=== PATIENT | female | born 2000 | race African-American/Black ===

== ENCOUNTER 2021-08-12 21:09 | Emergency (ER) | payer MEDICAID ==
[~2021-08-12] VITALS: Ht 167.6 cm; Wt 69.0 kg
[2021-08-12] MEDS ORDERED: MAGNESIUM/ALUMINUM HYDROXIDE/SIMETHICONE 30ML UDC PO STA (22:11)
[2021-08-12] MEDS ORDERED: VISCOUS LIDOCAINE 2% 15 ML UDC PO STA (22:11)
[2021-08-12] MEDS ORDERED: SODIUM CHLORIDE 0.9% 1,000 ML IV ONE (22:15)
[2021-08-12 22:37] LABS: HEMATOCRIT. 37.1 % (36.0-48.0); HEMOGLOBIN. 12.4 g/dL (12.0-16.0); MEAN CORPUSCULAR HEMOGLOBIN 26.8 pg (28.0-32.0); MEAN CORPUSCULAR VOLUME 80.2 fL (81.0-99.0); MEAN PLATELET VOLUME 9.5 fl (7.4-10.4); PLATELET 292 x1000/uL (130-400); RED BLOOD CELL COUNT 4.63 mill/uL (4.2-5.4); RED CELL DISTRIBUTION WIDTH 15.9 % (11.6-14.6)
[2021-08-12 22:47] LABS: HCG SCREEN NEGATIVE
[2021-08-12 22:58] LABS: CHLORIDE 105 mEq/L (98-107)
[2021-08-12] MEDS ORDERED: ONDANSETRON HCL 4MG/2ML INJ IV ONE (23:00)
[2021-08-12 23:06] LABS: PLATELET ESTIMATE NORMAL
[2021-08-13 00:40] VITALS: BP 128/78
== END 2021-08-13 00:40 | disposition home or self-care (01) ==
LOC: ER 21:09
DX: R10.13 Epigastric pain (principal); R11.2 Nausea with vomiting, unspecified; R03.0 Elevated blood-pressure reading, without diagnosis of hypertension
CPT/HCPCS: 36415; 80053; 81025; 83690; 84703; 85025; 96361; 96374; 99283; J2405; J7030

== ENCOUNTER 2022-01-23 20:31 | Emergency (ER) | payer MEDICAID ==
[~2022-01-23] VITALS: Ht 167.6 cm; Wt 75.0 kg
[2022-01-23 21:10] VITALS: BP 130/52
[2022-01-23] MEDS ORDERED: ONDANSETRON 4MG ODT PO ONE (21:30)
[2022-01-24] MEDS ORDERED: FAMOTIDINE 20MG TABLET PO SCH (21:00)
== END 2022-01-23 23:56 | disposition home or self-care (01) ==
LOC: ER 20:31
DX: R11.2 Nausea with vomiting, unspecified (principal); Z87.891 Personal history of nicotine dependence
CPT/HCPCS: 99283; Q0162

== ENCOUNTER 2022-07-22 23:59 | Emergency (ER) | payer MEDICAID ==
[~2022-07-22] VITALS: Ht 170.2 cm; Wt 92.2 kg
[2022-07-23 00:24] VITALS: BP 106/38
[2022-07-23 02:57] LABS: CLARITY URINE CLEAR (CLEAR); COLOR URINE YELLOW (YELLOW); KETONES URINE 2+ (NEGATIVE); LEUKOCYTE ESTERASE URINE NEGATIVE (NEGATIVE); NITRITE URINE NEGATIVE (NEGATIVE); OCCULT BLOOD URINE NEGATIVE (NEGATIVE); PH URINE 5.5 (4.5-8.0); PROTEIN URINE 1+ (NEGATIVE); SPECIFIC GRAVITY URINE 1.035 (1.005-1.030); UROBILINOGEN URINE 0.2 E.U./dL (0.2-1.0)
[2022-07-23 03:30] LABS: BASOPHILS % 0.3 % (0.0-2.0); HEMATOCRIT. 38.9 % (36.0-48.0); HEMOGLOBIN. 12.8 g/dL (12.0-16.0); LYMPHOCYTES % 9.5 % (20.0-50.0); MEAN CORPUSCULAR HEMOGLOBIN 26.6 pg (28.0-32.0); MEAN CORPUSCULAR VOLUME 80.9 fL (81.0-99.0); MEAN PLATELET VOLUME 9.3 fl (7.4-10.4); MONOCYTES % 5.2 % (2.0-8.0); PLATELET 307 x1000/uL (130-400); RED BLOOD CELL COUNT 4.81 mill/uL (4.2-5.4); RED CELL DISTRIBUTION WIDTH 17.2 % (11.6-14.6)
[2022-07-23 03:37] LABS: CHLORIDE 104 mEq/L (98-107)
[2022-07-23] MEDS ORDERED: ONDA4TAB50 MT (05:57)
[2022-07-23] MEDS ORDERED: ONDANSETRON 4MG ODT PO NR (06:00)
== END 2022-07-23 06:15 | disposition home or self-care (01) ==
LOC: ER 23:59
DX: R11.2 Nausea with vomiting, unspecified (principal); Z00.00 Encounter for general adult medical examination without abnormal findings; F12.10 Cannabis abuse, uncomplicated
CPT/HCPCS: 36415; 80053; 81003; 81025; 83690; 85025; 99283; Q0162

== ENCOUNTER 2022-10-16 21:03 | Emergency (ER) | payer MEDICAID ==
[~2022-10-16] VITALS: Ht 170.2 cm; Wt 91.0 kg
[~2022-10-16 21:03] MED LIST: ONDA4TAB50 MT
[2022-10-16 21:23] VITALS: BP 126/89
[2022-10-16] MEDS ORDERED: AMOXICILLIN/POTASSIUM CLAVULANATE 875/125MG TAB PO ONE (22:30)
[2022-10-16] MEDS ORDERED: TETANUS, DIPHTHERIA, PERTUSSIS VAC/PF 0.5ML (>10YR OLD) IM ONE (22:30)
[2022-10-16] MEDS ORDERED: AMOX1TAB16 MT (22:35)
[2022-10-16] MEDS ORDERED: IBUPROFEN 600MG TABLET PO ONE (22:45)
== END 2022-10-16 22:45 | disposition home or self-care (01) ==
LOC: ER 21:03
DX: S61.431A Puncture wound without foreign body of right hand, initial encounter (principal); S60.417A Abrasion of left little finger, initial encounter; W54.0XXA Bitten by dog, initial encounter; Y93.89 Activity, other specified; Y92.018 Other place in single-family (private) house as the place of occurrence of the external cause
CPT/HCPCS: 90471; 90715; 99283

== ENCOUNTER 2022-11-03 20:44 | Emergency (ER) | payer MEDICAID ==
[~2022-11-03] VITALS: Ht 170.2 cm; Wt 99.0 kg
[~2022-11-03 20:44] MED LIST changes: +AMOX1TAB16 MT
[2022-11-03 21:12] VITALS: BP 130/77
[2022-11-03] MEDS ORDERED: METOCLOPRAMIDE HCL 10MG/2ML VIAL IV STA (22:32)
[2022-11-03] MEDS ORDERED: SODIUM CHLORIDE 0.9% 1,000 ML IV ONE (22:45)
[2022-11-03 22:54] LABS: CLARITY URINE CLEAR (CLEAR); COLOR URINE YELLOW (YELLOW); KETONES URINE 3+ (NEGATIVE); LEUKOCYTE ESTERASE URINE 1+ (NEGATIVE); NITRITE URINE NEGATIVE (NEGATIVE); OCCULT BLOOD URINE NEGATIVE (NEGATIVE); PROTEIN URINE TRACE (NEGATIVE); SPECIFIC GRAVITY URINE 1.027 (1.005-1.030); UROBILINOGEN URINE 0.2 E.U./dL (0.2-1.0)
[2022-11-03 23:30] LABS: HEMATOCRIT. 37.8 % (36.0-48.0); HEMOGLOBIN. 12.2 g/dL (12.0-16.0); MEAN CORPUSCULAR HEMOGLOBIN 27.7 pg (28.0-32.0); MEAN CORPUSCULAR VOLUME 85.7 fL (81.0-99.0); MEAN PLATELET VOLUME 9.4 fl (7.4-10.4); PLATELET 321 x1000/uL (130-400); RED BLOOD CELL COUNT 4.41 mill/uL (4.2-5.4); RED CELL DISTRIBUTION WIDTH 15.9 % (11.6-14.6)
[2022-11-03 23:33] LABS: CHLORIDE 105 mEq/L (98-107)
[2022-11-03 23:34] LABS: PROTHROMBIN TIME 10.9 sec (9.6-11.0)
[2022-11-03 23:59] LABS: PLATELET ESTIMATE NORMAL
[2022-11-04] MEDS ORDERED: CEPH500C2 MT (01:05)
== END 2022-11-04 01:39 | disposition home or self-care (01) ==
LOC: ER 20:44
DX: K29.70 Gastritis, unspecified, without bleeding (principal); N39.0 Urinary tract infection, site not specified; F10.10 Alcohol abuse, uncomplicated; Y90.9 Presence of alcohol in blood, level not specified
CPT/HCPCS: 36415; 80053; 81003; 81025; 83690; 85025; 85610; 96361; 96374; 99283; J2765; J7030

== ENCOUNTER 2023-10-20 23:12 | Emergency (ER) | payer MEDICAID ==
[~2023-10-20] VITALS: Ht 172.7 cm; Wt 91.0 kg
[~2023-10-20 23:12] MED LIST changes: +CEPH500C2 MT
[2023-10-20 23:31] VITALS: BP 142/97; O2SAT 99
[2023-10-21 01:56] VITALS: PULSE 65; RESP 20; TEMP 98.2
== END 2023-10-21 01:56 | disposition home or self-care (01) ==
LOC: ER 23:12
DX: J06.9 Acute upper respiratory infection, unspecified (principal); F12.90 Cannabis use, unspecified, uncomplicated
CPT/HCPCS: 71045; 81025; 99283

== ENCOUNTER 2024-02-07 23:20 | Emergency (ER) | payer MEDICAID ==
[~2024-02-07] VITALS: Ht 167.6 cm; Wt 80.0 kg
[2024-02-07 23:24] VITALS: BP 121/70; PULSE 69; RESP 18; TEMP 98.1; O2SAT 99
[2024-02-08 00:48] LABS: HEMATOCRIT. 36.7 % (36.0-48.0); HEMOGLOBIN. 12.3 g/dL (12.0-16.0); MEAN CORPUSCULAR HEMOGLOBIN 27.7 pg (28.0-32.0); MEAN CORPUSCULAR HGB CONC 33.5 g/dL (31.0-37.0); MEAN CORPUSCULAR VOLUME 82.8 fL (81.0-99.0); MEAN PLATELET VOLUME 9.8 fl (7.4-10.4); PLATELET 312 x1000/uL (130-400); RED BLOOD CELL COUNT 4.43 mill/uL (4.2-5.4); RED CELL DISTRIBUTION WIDTH 16.3 % (11.6-14.6); WHITE BLOOD COUNT 10.3 x1000/uL (4.5-11.0)
[2024-02-08 00:55] LABS: DIFFERENTIAL COMMENT 1
[2024-02-08 01:11] LABS: ALANINE AMINOTRANSFERASE 18 IU/L (10-49); ALBUMIN 4.9 g/dL (3.2-4.8); ASPARTATE AMINOTRANSFERASE 29 IU/L (<34); BILIRUBIN TOTAL 0.8 mg/dL (0.1-1.0); CALCIUM 9.4 mg/dL (8.7-10.4); CARBON DIOXIDE 25 mEq/L (21-32); CHLORIDE 103 mEq/L (98-107); CREATININE 0.9 mg/dL (0.6-1.0); GLUCOSE 100 mg/dL (70-105); POTASSIUM 3.3 mEq/L (3.5-5.1); PROTEIN TOTAL 8.7 g/dL (6.0-8.3); SODIUM 138 mEq/L (136-145); UREA NITROGEN BLOOD 8 mg/dL (9-23)
[2024-02-08 01:18] LABS: CLARITY URINE TURBID (CLEAR); COLOR URINE DARK YELLOW (YELLOW); GLUCOSE URINE NEGATIVE (NEGATIVE); KETONES URINE 1+ (NEGATIVE); LEUKOCYTE ESTERASE URINE TRACE (NEGATIVE); NITRITE URINE NEGATIVE (NEGATIVE); OCCULT BLOOD URINE 3+ (NEGATIVE); PH URINE 5.5 (4.5-8.0); PROTEIN URINE 2+ (NEGATIVE); SPECIFIC GRAVITY URINE 1.043 (1.005-1.030)
[2024-02-08 01:25] LABS: PROTHROMBIN TIME 11.1 sec (9.6-11.0)
[2024-02-08 02:02] LABS: HCG SCREEN NEGATIVE
[2024-02-08 02:53] LABS: SQUAMOUS EPITHELIAL CELL URINE 1+ /lpf (RARE/1+)
[2024-02-08 02:54] LABS: WBC URINE 15-25 /hpf (0-2)
[2024-02-08 02:56] LABS: BACTERIA URINE TRACE
[2024-02-08 04:51] LABS: PLATELET ESTIMATE NORMAL
[2024-02-08] MEDS ORDERED: CEPH500T MT (05:53)
== END 2024-02-08 03:02 | disposition home or self-care (01) ==
LOC: ER 23:20
DX: N39.0 Urinary tract infection, site not specified (principal); F12.10 Cannabis abuse, uncomplicated
CPT/HCPCS: 36415; 80053; 81003; 81025; 84703; 85025; 99283

== ENCOUNTER 2024-11-19 22:51 | Emergency (ER) | payer MEDICAID ==
[~2024-11-19] VITALS: Ht 170.2 cm; Wt 104.3 kg
[~2024-11-19 22:51] MED LIST changes: +CEPH500T MT
[2024-11-19 22:59] VITALS: O2SAT 100
[2024-11-20] MEDS ORDERED: ONDANSETRON 4MG ODT PO STA (00:01)
[2024-11-20 01:09] LABS: CLARITY URINE CLOUDY (CLEAR); COLOR URINE YELLOW (YELLOW); GLUCOSE URINE NEGATIVE (NEGATIVE); KETONES URINE 3+ (NEGATIVE); LEUKOCYTE ESTERASE URINE NEGATIVE (NEGATIVE); NITRITE URINE NEGATIVE (NEGATIVE); OCCULT BLOOD URINE NEGATIVE (NEGATIVE); PROTEIN URINE 1+ (NEGATIVE); SPECIFIC GRAVITY URINE 1.032 (1.005-1.030); UROBILINOGEN URINE 0.2 E.U./dL (0.2-1.0)
[2024-11-20 01:23] LABS: CHLORIDE 102 mEq/L (98-107); POTASSIUM 3.7 mEq/L (3.5-5.1); SODIUM 137 mEq/L (136-145)
[2024-11-20 01:24] LABS: CALCIUM 9.8 mg/dL (8.7-10.4); CARBON DIOXIDE 25 mEq/L (21-32)
[2024-11-20 01:26] LABS: HEMATOCRIT. 36.2 % (36.0-48.0); HEMOGLOBIN. 11.6 g/dL (12.0-16.0); MEAN CORPUSCULAR HEMOGLOBIN 25.7 pg (28.0-32.0); MEAN CORPUSCULAR HGB CONC 31.9 g/dL (31.0-37.0); MEAN CORPUSCULAR VOLUME 80.4 fL (81.0-99.0); MEAN PLATELET VOLUME 9.3 fl (7.4-10.4); PLATELET 325 x1000/uL (130-400); RED CELL DISTRIBUTION WIDTH 16.2 % (11.6-14.6); WHITE BLOOD COUNT 11.7 x1000/uL (4.5-11.0)
[2024-11-20 01:29] LABS: GLUCOSE 93 mg/dL (70-105); UREA NITROGEN BLOOD 10 mg/dL (9-23)
[2024-11-20 01:31] LABS: ALANINE AMINOTRANSFERASE 14 IU/L (10-49); ALBUMIN 4.9 g/dL (3.2-4.8); ASPARTATE AMINOTRANSFERASE 26 IU/L (<34); BILIRUBIN DIRECT 0.2 mg/dL (<=3.0); BILIRUBIN TOTAL 0.8 mg/dL (0.1-1.0); DIFFERENTIAL COMMENT 1; PROTEIN TOTAL 7.9 g/dL (6.0-8.3)
[2024-11-20 01:36] LABS: HCG SCREEN NEGATIVE
[2024-11-20] MEDS: MAGNESIUM/ALUMINUM HYDROXIDE/SIMETHICONE 30ML UDC PO ONE (01:58)
[2024-11-20] MEDS: KETOROLAC 30MG/ML VIAL IM ONE (01:58)
[2024-11-20] MEDS: FAMOTIDINE 20MG TABLET PO SCH (01:58)
[2024-11-20] MEDS: ONDANSETRON 4MG ODT PO NR (02:14)
[2024-11-20 02:45] VITALS: BP 125/66; PULSE 67; RESP 18; TEMP 36.83628; O2SAT 98
[2024-11-20] MEDS ORDERED: ONDA-241 MT (02:48)
[2024-11-20] MEDS ORDERED: FAMO40TA7 MT (02:48)
[2024-11-20 05:25] LABS: SQUAMOUS EPITHELIAL CELL URINE 1+ /lpf (RARE/1+)
[2024-11-20 05:28] LABS: BACTERIA URINE NONE SEEN; RBC URINE 0-2 /hpf (0-2)
[2024-11-20 07:12] LABS: PLATELET ESTIMATE NORMAL
[2024-11-20 07:13] LABS: ANISOCYTOSIS 1+
== END 2024-11-20 03:00 | disposition home or self-care (01) ==
LOC: ER 22:51
DX: R10.9 Unspecified abdominal pain (principal); F12.10 Cannabis abuse, uncomplicated; Z82.49 Family history of ischemic heart disease and other diseases of the circulatory system; Z79.899 Other long term (current) drug therapy
CPT/HCPCS: 99285; 81025; 36415; 76705; 80076; 80048; 81003; 84703; 83690; 85025; 96372; J1885; Q0162